=== PATIENT | male | born 1995 | race Caucasian/White ===

== ENCOUNTER 2023-07-09 11:18 | Day surgery (SDC) | payer BC ==
[~2023-07-09] VITALS: Ht 185.4 cm; Wt 88.5 kg
[2023-07-09 11:40] VITALS: O2SAT 98
[2023-07-09] MEDS ORDERED: ACETAMINOPHEN I.V. 1000 MG 100 ML IV ONE (12:19)
[2023-07-09] MEDS ORDERED: LIDOCAINE 2%, 20 ML MDV ONE (12:36)
[2023-07-09] MEDS ORDERED: fentaNYL CITRATE/PF 100 MCG/2 ML AMP ONE (12:36)
[2023-07-09] MEDS ORDERED: SUGAMMADEX SODIUM 200 MG/2 ML VIAL IV ONE (12:36)
[2023-07-09] MEDS ORDERED: MIDAZOLAM HCL 2 MG/2 ML VIAL (VERSED) ONE (12:36)
[2023-07-09] MEDS ORDERED: ONDANSETRON HCL 4 MG/2 ML VIAL ONE (12:36)
[2023-07-09] MEDS ORDERED: WATER FOR IRRIGATION,STERILE 1,000 ML IRRIG.SOLN IR ONE (12:36)
[2023-07-09] MEDS ORDERED: ROCURONIUM BROMIDE 10 MG/ML (ZEMURON) ONE (12:36)
[2023-07-09] MEDS ORDERED: LR 1,000 ML IV.SOLN IV ONE (12:36)
[2023-07-09] MEDS ORDERED: NS IRRIG SOLN 1000 ML IR ONE (12:36)
[2023-07-09] MEDS ORDERED: DEXAMETHASONE SOD PHOSPHATE 4 MG/ML VIAL ONE (12:36)
[2023-07-09] MEDS ORDERED: LIDOCAINE/EPI 1% 1:100000 20 ML VIAL ONE (12:36)
[2023-07-09] MEDS ORDERED: PROPOFOL 200MG/ 20ML VIAL (DIPRIVAN) IV ONE (12:36)
[2023-07-09] MEDS ORDERED: DESFLURANE 15 MIN GAS INH ONE (12:36)
[2023-07-09] MEDS ORDERED: MIDAZOLAM HCL 2 MG/2 ML VIAL (VERSED) IVP PRN (13:45)
[2023-07-09] MEDS ORDERED: MEPERIDINE HCL/PF 25 MG/ML DISP.SYRIN IVP PRN (13:45)
[2023-07-09] MEDS ORDERED: HYDROmorphone 1 MG/ML INJ. CARTRIDGE IVP PRN ×2 (13:45)
[2023-07-09] MEDS ORDERED: LR 1,000 ML IV SCH (13:45)
[2023-07-09] MEDS ORDERED: LABETALOL 100 MG/ 20ML VIAL IVP PRN (13:45)
[2023-07-09] MEDS ORDERED: hydrALAZINE HCL 20 MG/ML VIAL IVP PRN (13:45)
[2023-07-09] MEDS ORDERED: METOCLOPRAMIDE HCL 10 MG/2 ML VIAL IVP PRN (13:45)
[2023-07-09] MEDS ORDERED: METOCLOPRAMIDE HCL 10 MG/2 ML VIAL ONE (16:57)
[2023-07-09 17:13] VITALS: BP_SYST 121; PULSE 80; RESP 17
== END 2023-07-09 17:41 | disposition home or self-care (01) ==
LOC: SDS 11:18 → SMU 11:19 → SDS 17:41
PROVIDERS: ATTEND Otolaryngology
DX: J34.2 Deviated nasal septum (principal); D38.5 Neoplasm of uncertain behavior of other respiratory organs; E66.3 Overweight; F14.10 Cocaine abuse, uncomplicated; J34.89 Other specified disorders of nose and nasal sinuses; Z79.899 Other long term (current) drug therapy
CPT/HCPCS: 31296; 88304; 88305; 88311; 30140; 30520; 31257; 31256; J3490; J1100; J2001; J2765; J3465; J2405; J2704; J3010; J7120; A4649; J0131